=== PATIENT | female | born 1975 | race Caucasian/White ===

== ENCOUNTER 2018-07-04 08:18 | Day surgery (SDC) | payer OTHER ==
[2018-06-30 14:31] VITALS: BMI 21.3
[2018-07-04 09:44] VITALS: O2SAT 100
[2018-07-04] MEDS ORDERED: Propofol 10 mg/ml Inj (20 ML) ONE (12:55)
[2018-07-04] MEDS ORDERED: Vasopressin 20 Units/ml Inj ONE (13:11)
[2018-07-04] MEDS ORDERED: Lactated Ringer's 1,000 ML IV SCH (13:45)
[2018-07-04 15:30] VITALS: RESP 18
[2018-07-04 15:50] VITALS: BP 100/80; PULSE 73; TEMP 98
--- NOTE | 2018-07-11 09:44 | OP ---
PROCEDURE DATE: 07/04/2018 FACILITY: [facility]. PREOPERATIVE DIAGNOSES: Excessive irregular menses, endometrial polyps. POSTOPERATIVE DIAGNOSES: Excessive irregular menses, endometrial polyps. SURGEON: Philipp Emerson MD BOILER REPAIRMAN: None. ANESTHESIA: General LMA. OPERATIVE FINDINGS: Atraumatic site of entry and at the end of the case, diffusely polypoid endometrium with endometrial polyps. OPERATIVE PROCEDURE: The patient was taken to the OR where time-out was performed. She was prepped and draped in the usual sterile fashion. After bimanual exam, the cervix was grasped with Ness tenaculum. The cervix was sterilely dilated to allow passage of operative hysteroscope. Dilute vasopressin 20 units in 200 mL of normal saline was injected in the cervix at 2, 4, 8, and 10 o'clock with 20 mL in total. The normal saline distention medium was used. The above findings were noted. MyoSure was used to resect the pathology and performed visually direct D and C. All sponge, lap, and needle counts were correct at the end of the case. The patient tolerated the procedure well. SPECIMENS: Endometrial polyp and direct endometrial curetting. POSTOPERATIVE CONDITION: Stable for PACU. Philipp Emerson MD
== END 2018-07-04 15:59 | disposition home or self-care (01) ==
LOC: C.SDS 08:18
PROVIDERS: ATTEND Obstetrics & Gynecology
DX: N84.0 Polyp of corpus uteri (principal); N92.6 Irregular menstruation, unspecified
CPT/HCPCS: 36415; 58558; 88305; J2405; J2704